=== PATIENT | female | born 1990 | race African-American/Black ===

== ENCOUNTER 2017-10-02 00:23 | Emergency (ER) | payer OTHER ==
[2017-10-02 00:40] LABS: Glucose,Whole Blood 185 mg/dL (75-99)
[2017-10-02 00:50] VITALS: TEMP 96.7
[2017-10-02] MEDS ORDERED: ONDANSETRON 4 MG/2 ML VIAL IVP STA ×2 (00:51→02:05)
--- NOTE | 2017-10-02 02:03 | ED ---
General Adult HPI - General Chief complaint: Overdose Stated complaint: overdose Time Seen by Provider: 10/02/17 00:27 Source: patient, EMS, RN notes reviewed Mode of arrival: EMS Limitations: no limitations - History of Present Illness Initial comments: 27-year-old female presenting with suspected heroin overdose. Patient was found by EMS in a bathtub, she was cyanotic Neck covered in cold water. Her friends had been dousing her with ice cold water. Patient states she remembers drinking alcohol and smoking marijuana. At the time my initial evaluation she is not admitting to using heroin. She denies any previous heroin use. Although she is uncertain of what drug she took. No suicidal ideation. Patient complains of some nausea. No other complaints. Patient was given 2 mg of IV Narcan with resolution in her apnea and cyanosis. Patient is awake and alert at the time my evaluation. - Related Data Allergies Allergy/AdvReac Type Severity Reaction Status Date / Time vancomycin Allergy Rash/Hives Verified 10/02/17 00:35 Penicillins AdvReac Rash/Hives Verified 10/02/17 00:35 Review of Systems ROS Statement: Those systems with pertinent positive or pertinent negative responses have been documented in the HPI. ROS Other: All systems not noted in ROS Statement are negative. Past Medical History Past Medical History: Asthma History of Any Multi-Drug Resistant Organisms: None Reported Past Surgical History: Orthopedic Surgery Additional Past Surgical History / Comment(s): bilateral knee surgery Past Psychological History: No Psychological Hx Reported Smoking Status: Current every day smoker Past Alcohol Use History: None Reported Past Drug Use History: Heroin General Exam Limitations: no limitations General appearance: alert, in no apparent distress Head exam: Present: atraumatic, normocephalic Eye exam: Present: normal appearance, PERRL ENT exam: Present: normal exam Neck exam: Present: normal inspection. Absent: tenderness, meningismus Respiratory exam: Present: normal lung sounds bilaterally. Absent: respiratory distress, wheezes Cardiovascular Exam: Present: regular rate, normal rhythm GI/Abdominal exam: Present: soft. Absent: distended, tenderness, guarding Extremities exam: Present: normal inspection. Absent: normal capillary refill, pedal edema Neurological exam: Present: alert, oriented X3, CN II-XII intact. Absent: motor sensory deficit Psychiatric exam: Present: normal affect, normal mood Skin exam: Present: warm, dry, intact. Absent: cyanosis, diaphoretic Course Vital Signs 10/02/17 10/02/17 00:23 00:42 Temperature 96.7 F L Respiratory 16 Rate Blood Pressure 156/77 O2 Sat by Pulse 99 Oximetry Medical Decision Making - Medical Decision Making 27-year-old female presenting with suspected heroin overdose. According to EMS patient was cyanotic and apneic, this improved with 2 mg of Narcan. History consistent with opiate overdose. Patient is observed in the emergency department for 3 hours, no deterioration in respiratory status. Patient remains stable. Urine drug screen positive for cocaine and marijuana. No opiates found in the urine although this is likely delayed. Diagnosis: Suspect opiate overdose, cocaine and marijuana use. - Lab Data Lab Results 10/02/17 10/02/17 Range/Units 00:32 02:25 POC Glucose (mg/dL) 185 H (75-99) mg/dL POC Glu Boot Turner ID Kelly Gonzalez Urine Opiates Screen Not Detected (NotDetected) Ur Oxycodone Screen Not Detected (NotDetected) Urine Methadone Screen Not Detected (NotDetected) Ur Propoxyphene Screen Not Detected (NotDetected) Ur Barbiturates Screen Not Detected (NotDetected) U Tricyclic Antidepress Not Detected (NotDetected) Ur Phencyclidine Scrn Not Detected (NotDetected) Ur Amphetamines Screen Not Detected (NotDetected) U Methamphetamines Scrn Not Detected (NotDetected) U Benzodiazepines Scrn Not Detected (NotDetected) Urine Cocaine Screen Detected H (NotDetected) U Marijuana (THC) Screen Detected H (NotDetected) Disposition Clinical Impression: Poisoning by opiate or related narcotic, Drug overdose Disposition: HOME SELF-CARE Condition: Good Instructions: Cocaine Abuse (ED), Narcotic Abuse (ED) Referrals: None,Stated [Primary Care Provider] - 1-2 days Tiara Hwang MD [REFERRING] - 1-2 days Time of Disposition: 03:28
[2017-10-02 03:14] LABS: Amphetamine Screen,Urine Not Detected (NotDetected); Barbiturate Screen,Urine Not Detected (NotDetected); Benzodiazepines Screen,Urine Not Detected (NotDetected); Cocaine Screen,Urine Detected (NotDetected); Methadone Screen, Urine Not Detected (NotDetected); Opiate Screen,Urine Not Detected (NotDetected); Oxycodone Screen, Urine Not Detected (NotDetected); Phencyclidine Screen,Urine Not Detected (NotDetected); Tricyclic Antidepressant,Urine Not Detected (NotDetected); Urn Cannabinoid Scrn Detected (NotDetected)
[2017-10-02 03:26] VITALS: PULSE 74; RESP 18
[2017-10-02 03:50] VITALS: BP 105/63
== END 2017-10-02 03:51 | disposition home or self-care (01) ==
LOC: EC 00:23
DX: T40.1X1A Poisoning by heroin, accidental (unintentional), initial encounter (principal); F17.200 Nicotine dependence, unspecified, uncomplicated; Z88.1 Allergy status to other antibiotic agents; Z88.0 Allergy status to penicillin; Y92.002 Bathroom of unspecified non-institutional (private) residence as the place of occurrence of the external cause
CPT/HCPCS: 36415; 80306; 99284; 96374; 96376; J2405

== ENCOUNTER 2017-11-20 08:36 | Emergency (ER) | payer OTHER ==
[2017-11-20 08:41] VITALS: BP 137/73; PULSE 87; RESP 18; TEMP 98.2
[2017-11-20 09:05] LABS: Glucose,Whole Blood 99 mg/dL (75-99)
--- NOTE | 2017-11-20 09:07 | ED ---
General Adult HPI - General Chief complaint: Upper Respiratory Infection Stated complaint: POSS STREP Time Seen by Provider: 11/20/17 08:47 Source: patient, RN notes reviewed Mode of arrival: ambulatory Limitations: no limitations - History of Present Illness Initial comments: Patient went 27-year-old female presenting today to the emergency room with a chief complaint of body aches, chills, fever, nausea vomiting and cough congestion. Patient states all the symptoms started yesterday. States she's had body aches. States had a low-grade fever yesterday. Doesn't nausea vomiting no signs of any blood in the emesis. Admits increased cough congestion. States she is out of her albuterol inhaler. Denies any other complaints. Patient denies any recent shortness of breath, chest pain, back pain , numbness or tingling, dysuria or hematuria, constipation or diarrhea, headaches or visual changes, or any other complaints. - Related Data Previous Rx's Medication Instructions Recorded Albuterol Inhaler [Ventolin Hfa 1 - 2 puff INHALATION Q4-6H PRN #1 11/20/17 Inhaler] inhaler Ondansetron Odt [Zofran ODT] 4 mg PO Q8HR PRN #20 tab 11/20/17 Oseltamivir [Tamiflu] 75 mg PO Q12HR 5 Days cap 11/20/17 Allergies Allergy/AdvReac Type Severity Reaction Status Date / Time vancomycin Allergy Rash/Hives Verified 11/20/17 08:41 Penicillins AdvReac Rash/Hives Verified 11/20/17 08:41 Review of Systems ROS Statement: Those systems with pertinent positive or pertinent negative responses have been documented in the HPI. ROS Other: All systems not noted in ROS Statement are negative. Past Medical History Past Medical History: Asthma Additional Past Medical History / Comment(s): previous heroin History of Any Multi-Drug Resistant Organisms: None Reported Past Surgical History: Orthopedic Surgery Additional Past Surgical History / Comment(s): bilateral knee surgery Past Psychological History: No Psychological Hx Reported Smoking Status: Current every day smoker Past Alcohol Use History: None Reported Past Drug Use History: Marijuana General Exam - General Exam Comments Initial Comments: General: The patient is awake and alert, in no distress, and does not appear acutely ill. Eye: Pupils are equal, round and reactive to light, extra-ocular movements are intact. No nystagmus. There is normal conjunctiva bilaterally. No signs of icterus. Ears, nose, mouth and throat: There are moist mucous membranes and no oral lesions. No exudate. Uvula midline. Mild redness to the posterior pharynx. Neck: The neck is supple, there is no tenderness or JVD. Cardiovascular: There is a regular rate and rhythm. No murmur, rub or gallop is appreciated. Respiratory: Lungs are clear to auscultation, respirations are non-labored, breath sounds are equal. No wheezes, stridor, rales, or rhonchi. Musculoskeletal: Normal ROM, no tenderness. Strength 5/5. Sensation intact. Pulses equal bilaterally 2+. Neurological: A&O x 3. CN II-XII intact, There are no obvious motor or sensory deficits. Coordination appears grossly intact. Speech is normal. Skin: Skin is warm and dry and no rashes or lesions are noted. Psychiatric: Cooperative, appropriate mood & affect, normal judgment. Limitations: no limitations Course Vital Signs 11/20/17 08:38 Temperature 98.2 F Pulse Rate 87 Respiratory 18 Rate Blood Pressure 137/73 O2 Sat by Pulse 100 Oximetry Medical Decision Making - Medical Decision Making Patient's symptoms are consistent with influenza. Symptoms started yesterday will be started on Tamiflu. Patient also given nausea medication go home with and a refill for her albuterol. Disposition Clinical Impression: Influenza Disposition: HOME SELF-CARE Condition: Good Instructions: Influenza (ED) Additional Instructions: Please use medication as discussed. Please follow-up with family doctor in the next 2 days of symptoms have not improved. Please return to emergency room if the symptoms increase or worsen or for any other concerns. Prescriptions: Albuterol Inhaler [Ventolin Hfa Inhaler] 1 - 2 puff INHALATION Q4-6H PRN #1 inhaler PRN Reason: Cough Ondansetron Odt [Zofran ODT] 4 mg PO Q8HR PRN #20 tab PRN Reason: Nausea Oseltamivir [Tamiflu] 75 mg PO Q12HR 5 Days cap Referrals: None,Stated [Primary Care Provider] - 1-2 days Morteza Sepulveda MD [STAFF PHYSICIAN] - 1-2 days Time of Disposition: 09:06
== END 2017-11-20 09:15 | disposition home or self-care (01) ==
LOC: EC 08:36
DX: J11.1 Influenza due to unidentified influenza virus with other respiratory manifestations (principal); F17.200 Nicotine dependence, unspecified, uncomplicated; Z88.0 Allergy status to penicillin; Z88.1 Allergy status to other antibiotic agents
CPT/HCPCS: 36415; 99283

== ENCOUNTER 2017-11-20 21:53 | Emergency (ER) | payer OTHER ==
[2017-11-20] MEDS ORDERED: ACETAMINOPHEN TAB 500 MG TAB PO STA (23:42)
[2017-11-20] MEDS ORDERED: SODIUM CHLORIDE 0.9% 1,000 ML IV STA (23:42)
[2017-11-20] MEDS ORDERED: KETOROLAC 30 MG/ML 1 ML VIAL IVP STA (23:43)
--- NOTE | 2017-11-21 00:35 | ED ---
Fever HPI - General Chief Complaint: Fever Stated Complaint: FLU Time Seen by Provider: 11/20/17 23:16 Source: patient Mode of arrival: ambulatory Limitations: no limitations - History of Present Illness Initial Comments: Patient is a 27-year-old female presenting for flulike illness. Patient states that this morning, she started having myalgias, headache, fever, cough. She also admits to mildly diffuse abdominal pain as well as nausea and vomiting. She states that she was seen her earlier today and no testing was done and told that she likely had the flu. She is unsure whether or not she was given prescription for Tamiflu. - Related Data Previous Rx's Medication Instructions Recorded Albuterol Inhaler [Ventolin Hfa 1 - 2 puff INHALATION Q4-6H PRN #1 11/20/17 Inhaler] inhaler Ondansetron Odt [Zofran ODT] 4 mg PO Q8HR PRN #20 tab 11/20/17 Oseltamivir [Tamiflu] 75 mg PO Q12HR 5 Days cap 11/20/17 Allergies Allergy/AdvReac Type Severity Reaction Status Date / Time vancomycin Allergy Rash/Hives Verified 11/20/17 22:04 Penicillins AdvReac Rash/Hives Verified 11/20/17 22:04 Review of Systems ROS Statement: Those systems with pertinent positive or pertinent negative responses have been documented in the HPI. Constitutional: Positive for chills, fatigue and fever. HENT: Negative for congestion. Respiratory: Negative for chest tightness, shortness of breath and wheezing. Cardiovascular: Negative for chest pain and palpitations. Gastrointestinal: Positive for abdominal pain. Negative for abdominal distention , diarrhea, positive for nausea and vomiting. Genitourinary: Negative for dysuria. Musculoskeletal: Negative for back pain, neck pain and neck stiffness. Skin: Negative for color change. Neurological: Negative for dizziness, speech difficulty, weakness and light- headedness. Positive for headache Psychiatric/Behavioral: Negative for agitation and confusion. The patient is not nervous/anxious. ROS Other: All systems not noted in ROS Statement are negative. Past Medical History Past Medical History: Asthma Additional Past Medical History / Comment(s): previous heroin History of Any Multi-Drug Resistant Organisms: None Reported Past Surgical History: Orthopedic Surgery Additional Past Surgical History / Comment(s): bilateral knee surgery Past Psychological History: No Psychological Hx Reported Smoking Status: Current every day smoker Past Alcohol Use History: None Reported Past Drug Use History: Marijuana General Exam - General Exam Comments Initial Comments: Physical Exam Constitutional: Pt is oriented to person, place, and time. Pt appears well- developed and well-nourished. No distress. HENT: Head: Normocephalic and atraumatic. Eyes: EOM are normal. Neck: Normal range of motion. Neck supple. Cardiovascular: Tachycardia, regular rhythm, S1 normal, S2 normal and normal heart sounds. Exam reveals no gallop and no friction rub. No murmur heard. Pulmonary/Chest: Effort normal and breath sounds normal. No tachypnea and no bradypnea. No respiratory distress. No wheezes or rales noted. Abdominal: Soft. Bowel sounds are normal. Pt exhibits no shifting dullness, no distension, no pulsatile liver, no fluid wave, no abdominal bruit and no ascites. There is no tenderness. There is no rigidity, no rebound, no guarding, no tenderness at McBurney's point and negative Gilmore's sign. Musculoskeletal: Normal range of motion. Neurological: Pt is alert and oriented to person, place, and time. No cranial nerve deficit. Skin: Skin is warm and dry. No rash noted. Pt is not diaphoretic. No erythema. No pallor. Psychiatric: Pt has a normal mood and affect. Pt behavior is normal. Thought content normal. Limitations: no limitations Course Vital Signs 11/20/17 22:02 Temperature 101.1 F H Pulse Rate 101 H Respiratory 18 Rate Blood Pressure 140/87 O2 Sat by Pulse 100 Oximetry Medical Decision Making - Medical Decision Making Laboratory studies revealed that there is no significant leukocytosis and urinalysis was negative for both and infection. The patient was given 2 L of fluids as well as antiemetics and Toradol. Patient stated that the symptoms were improved. Prescriptions were not given as the patient stated that she did already have prescriptions for Zofran and that she had taken her first dose of Tamiflu earlier. Patient was reexamined prior to d/c and found to be resting comfortably in bed in no acute distress.. Explained all labs and diagnostic test results and that we will discharge the patient home and patient is to follow up with PCP in 1-2 days and return to the ED if symptoms worsen. Pt is agreeable to plan. - Lab Data Result diagrams: 11/21/17 00:51 11/21/17 00:51 Lab Results 11/21/17 11/21/17 11/21/17 Range/Units 00:51 00:51 00:51 WBC 8.1 (3.8-10.6) k/uL RBC 4.03 (3.80-5.40) m/uL Hgb 10.2 L (11.4-16.0) gm/dL Hct 33.6 L (34.0-46.0) % MCV 83.2 (80.0-100.0) fL MCH 25.4 (25.0-35.0) pg MCHC 30.5 L (31.0-37.0) g/dL RDW 15.7 H (11.5-15.5) % Plt Count 329 (150-450) k/uL Neutrophils % 74 % Lymphocytes % 13 % Monocytes % 7 % Eosinophils % 3 % Basophils % 1 % Neutrophils # 6.0 (1.3-7.7) k/uL Lymphocytes # 1.1 (1.0-4.8) k/uL Monocytes # 0.6 (0-1.0) k/uL Eosinophils # 0.3 (0-0.7) k/uL Basophils # 0.0 (0-0.2) k/uL Hypochromasia Slight Sodium 138 (137-145) mmol/L Potassium 4.1 (3.5-5.1) mmol/L Chloride 103 (98-107) mmol/L Carbon Dioxide 24 (22-30) mmol/L Anion Gap 11 mmol/L BUN 11 (7-17) mg/dL Creatinine 0.80 (0.52-1.04) mg/dL Est GFR (MDRD) Af Amer >60 (>60 ml/min/1.73 sqM) Est GFR (MDRD) Non-Af >60 (>60 ml/min/1.73 sqM) Glucose 100 H (74-99) mg/dL Calcium 9.0 (8.4-10.2) mg/dL Magnesium 1.8 (1.6-2.3) mg/dL Total Bilirubin 0.2 (0.2-1.3) mg/dL AST 14 (14-36) U/L ALT 22 (9-52) U/L Alkaline Phosphatase 83 (38-126) U/L Total Protein 7.3 (6.3-8.2) g/dL Albumin 4.0 (3.5-5.0) g/dL Urine Color Urine Appearance (Clear) Urine pH (5.0-8.0) Ur Specific [place] (1.001-1.035) Urine Protein (Negative) Urine Glucose (UA) (Negative) Urine Ketones (Negative) Urine Blood (Negative) Urine Nitrite (Negative) Urine Bilirubin (Negative) Urine Urobilinogen (<2.0) mg/dL Ur Leukocyte Esterase (Negative) Urine RBC (0-5) /hpf Urine WBC (0-5) /hpf Ur Squamous Epith Cells (0-4) /hpf Urine Mucus (None) /hpf Urine HCG, Qual (Not Detectd) Influenza Type A RNA Detected H (Not Detectd) Influenza Type B (PCR) Not Detected (Not Detectd) 11/21/17 11/21/17 Range/Units 00:51 00:51 WBC (3.8-10.6) k/uL RBC (3.80-5.40) m/uL Hgb (11.4-16.0) gm/dL Hct (34.0-46.0) % MCV (80.0-100.0) fL MCH (25.0-35.0) pg MCHC (31.0-37.0) g/dL RDW (11.5-15.5) % Plt Count (150-450) k/uL Neutrophils % % Lymphocytes % % Monocytes % % Eosinophils % % Basophils % % Neutrophils # (1.3-7.7) k/uL Lymphocytes # (1.0-4.8) k/uL Monocytes # (0-1.0) k/uL Eosinophils # (0-0.7) k/uL Basophils # (0-0.2) k/uL Hypochromasia Sodium (137-145) mmol/L Potassium (3.5-5.1) mmol/L Chloride (98-107) mmol/L Carbon Dioxide (22-30) mmol/L Anion Gap mmol/L BUN (7-17) mg/dL Creatinine (0.52-1.04) mg/dL Est GFR (MDRD) Af Amer (>60 ml/min/1.73 sqM) Est GFR (MDRD) Non-Af (>60 ml/min/1.73 sqM) Glucose (74-99) mg/dL Calcium (8.4-10.2) mg/dL Magnesium (1.6-2.3) mg/dL Total Bilirubin (0.2-1.3) mg/dL AST (14-36) U/L ALT (9-52) U/L Alkaline Phosphatase (38-126) U/L Total Protein (6.3-8.2) g/dL Albumin (3.5-5.0) g/dL Urine Color Yellow Urine Appearance Clear (Clear) Urine pH 6.5 (5.0-8.0) Ur Specific [place] 1.017 (1.001-1.035) Urine Protein Negative (Negative) Urine Glucose (UA) Negative (Negative) Urine Ketones Negative (Negative) Urine Blood Negative (Negative) Urine Nitrite Negative (Negative) Urine Bilirubin Negative (Negative) Urine Urobilinogen <2.0 (<2.0) mg/dL Ur Leukocyte Esterase Negative (Negative) Urine RBC 1 (0-5) /hpf Urine WBC <1 (0-5) /hpf Ur Squamous Epith Cells 2 (0-4) /hpf Urine Mucus Rare H (None) /hpf Urine HCG, Qual Not Detected (Not Detectd) Influenza Type A RNA (Not Detectd) Influenza Type B (PCR) (Not Detectd) Disposition Clinical Impression: Influenza A Disposition: HOME SELF-CARE Condition: Good Instructions: Influenza (ED) Referrals: None,Stated [Primary Care Provider] - 1-2 days Time of Disposition: 01:32
[2017-11-21 01:08] LABS: Appearance,Urine Clear (Clear); Bilirubin,Urine Negative (Negative); Blood,Urine Negative (Negative); Color,Urine Yellow; Glucose,Urine (UA) Negative (Negative); Ketones,Urine Negative (Negative); Leukocyte Esterase,Urine Negative (Negative); Mucus,Urine Rare /hpf; Nitrite,Urine Negative (Negative); PH, Urine 6.5 (5.0-8.0); Protein,Urine Negative (Negative); RBC,Urine 1 /hpf (0-5); Specific Gravity,Urine 1.017 (1.001-1.035); Squamous Epithelial Cell,Urine 2 /hpf (0-4); Urobilinogen,Urine <2.0 mg/dL (<2.0); WBC,Urine <1 /hpf (0-5)
[2017-11-21 01:14] LABS: ALT 22 U/L (9-52); AST 14 U/L (14-36); Alkaline Phosphatase 83 U/L (38-126); Anion Gap 11 mmol/L; Blood Urea Nitrogen 11 mg/dL (7-17); Carbon Dioxide 24 mmol/L (22-30); Chloride 103 mmol/L (98-107); Glucose 100 mg/dL (74-99); Magnesium 1.8 mg/dL (1.6-2.3); Potassium 4.1 mmol/L (3.5-5.1); Sodium 138 mmol/L (137-145); Total Bilirubin 0.2 mg/dL (0.2-1.3); Total Protein 7.3 g/dL (6.3-8.2)
[2017-11-21 01:15] LABS: Basophils % (A) 1 %; Eosinophils # (A) 0.3 k/uL (0-0.7); Eosinophils % (A) 3 %; HCT 33.6 % (34.0-46.0); HGB 10.2 gm/dL (11.4-16.0); Hypochromasia Slight; Lymphocytes # (A) 1.1 k/uL (1.0-4.8); Lymphocytes % (A) 13 %; MCH 25.4 pg (25.0-35.0); MCHC 30.5 g/dL (31.0-37.0); MCV 83.2 fL (80.0-100.0); Mean Platelet Volume 6.8; Monocytes # (A) 0.6 k/uL (0-1.0); Monocytes % (A) 7 %; Neutrophils % (A) 74 %; Platelet Count 329 k/uL (150-450); RBC 4.03 m/uL (3.80-5.40); RDW 15.7 % (11.5-15.5); WBC 8.1 k/uL (3.8-10.6)
[2017-11-21 01:40] VITALS: BP 117/53; PULSE 92; RESP 20; TEMP 101.4
== END 2017-11-21 01:40 | disposition home or self-care (01) ==
LOC: EC 21:53
DX: J10.1 Influenza due to other identified influenza virus with other respiratory manifestations (principal); F17.200 Nicotine dependence, unspecified, uncomplicated; Z88.0 Allergy status to penicillin; Z88.1 Allergy status to other antibiotic agents
CPT/HCPCS: 36415; 80053; 83735; 85025; 81003; 81025; 87502; 99283; 96374; 96361; J1885

== ENCOUNTER 2018-01-02 19:32 | Emergency (ER) | payer OTHER ==
[2018-01-02 19:40] VITALS: RESP 18
[2018-01-02] MEDS ORDERED: SODIUM CHLORIDE 0.9% 1,000 ML IV STA (19:59)
[2018-01-02] MEDS ORDERED: ACETAMINOPHEN TAB 500 MG TAB PO STA (19:59)
[2018-01-02] MEDS ORDERED: IBUPROFEN 600 MG TAB PO STA (19:59)
[2018-01-02] MEDS ORDERED: ONDANSETRON 4 MG/2 ML VIAL IVP STA (20:00)
[2018-01-02] MEDS ORDERED: IPRATROPIUM-ALBUTEROL 3 ML NEB INHALATION STA (20:00)
--- NOTE | 2018-01-02 20:04 | ED ---
Fever HPI - General Chief Complaint: Fever Stated Complaint: VOMITING,BODY ACHES Time Seen by Provider: 01/02/18 19:48 Source: patient, RN notes reviewed Mode of arrival: ambulatory Limitations: no limitations - History of Present Illness Initial Comments: This is a 27-year-old female presents to the emergency department with chief complaint of fever, cough and vomiting. Patient states that she has been sick for the past 3 days. She reports a headache, body aches, productive cough of yellow phlegm, sore throat and congestion. She states that yesterday she developed nausea, vomiting and diarrhea. She states she has vomited 4 times today and has been unable to keep down any food or water. Patient states that she is a current, every day smoker and does have a history of asthma. She states that she lost her albuterol inhaler. Denies chest pain or shortness of breath, numbness or tingling, dysuria or hematuria. Patient does report some generalized abdominal discomfort. - Related Data Home Medications Medication Instructions Recorded Confirmed Albuterol Inhaler [Ventolin Hfa 1 - 2 puff INHALATION RT-Q4H PRN 01/02/18 Inhaler] Ibuprofen [Motrin Ib] 200 - 400 mg PO Q6H PRN 01/02/18 01/02/18 [facility] Allergy Relief 1 tab PO ONCE PRN 01/02/18 01/02/18 Previous Rx's Medication Instructions Recorded Albuterol Inhaler [Ventolin Hfa 1 - 2 puff INHALATION Q6HR PRN #1 01/02/18 Inhaler] inhaler Oseltamivir [Tamiflu] 75 mg PO Q12HR #10 cap 01/02/18 Allergies Allergy/AdvReac Type Severity Reaction Status Date / Time vancomycin Allergy Rash/Hives Verified 01/02/18 19:50 Penicillins AdvReac Rash/Hives Verified 01/02/18 19:50 Review of Systems ROS Statement: Those systems with pertinent positive or pertinent negative responses have been documented in the HPI. ROS Other: All systems not noted in ROS Statement are negative. Past Medical History Past Medical History: Asthma Additional Past Medical History / Comment(s): previous heroin History of Any Multi-Drug Resistant Organisms: None Reported Past Surgical History: Orthopedic Surgery Additional Past Surgical History / Comment(s): bilateral knee surgery Past Psychological History: No Psychological Hx Reported Smoking Status: Current every day smoker Past Alcohol Use History: None Reported Past Drug Use History: Marijuana General Exam - General Exam Comments Initial Comments: General: Awake and alert, well-developed; in no apparent distress. HEENT: Head atraumatic, normocephalic. Pupils are equal, round and reactive to light. Extraocular movements intact. Oropharynx moist without erythema or exudate. Neck: Supple. Normal ROM. Cardiovascular: Regular rate and rhythm. No murmurs, rubs or gallops. Chest symmetrical. Respiratory: Lungs clear to auscultation bilaterally. No wheezes, rales or rhonchi. Normal respiratory effort with no use of accessory muscles. Abdomen: Soft, non-distended. Generalized mild tenderness on palpation. No rigidity, rebound or guarding. Normal bowel sounds in all 4 quadrants. Musculoskeletal: Normal ROM, no tenderness bilateral upper and lower extremities. Ambulating normally. Skin: [place], warm and dry without rashes or lesions. Neurological: Alert and oriented x3. CN II-XII grossly intact. Speech is fluent and answers are appropriate. No focal neuro deficits. Psychiatric: Normal mood and affect. No overt signs of depression or anxiety noted. Limitations: no limitations Course Vital Signs 01/02/18 01/02/18 01/02/18 19:38 20:00 20:23 Temperature 101.4 F H Pulse Rate 106 H Respiratory 18 20 18 Rate Blood Pressure 135/82 O2 Sat by Pulse 100 Oximetry 01/02/18 01/02/18 20:25 20:45 Temperature Pulse Rate 102 H 100 Respiratory Rate Blood Pressure O2 Sat by Pulse Oximetry Medical Decision Making - Medical Decision Making This is a 27-year-old female who presents to the emergency department with chief complaint of fever and vomiting. Patient states that she has been unable for the past 3 days. She complains of headache, body aches, congestion, cough, sore throat, nausea and vomiting. CBC and CMP are unremarkable. Chest x-ray reveals evidence for no acute cardiopulmonary processes. Patient did test positive for influenza B. Vital signs are stable and patient is in no acute distress. She will be discharged home with a prescription for Tamiflu as well as an albuterol inhaler. Patient is in agreement with plan and voices understanding. All questions were answered. - Lab Data Result diagrams: 01/02/18 20:15 01/02/18 20:15 Lab Results 01/02/18 01/02/18 01/02/18 Range/Units 20:15 20:15 20:15 WBC 7.2 (3.8-10.6) k/uL RBC 4.41 (3.80-5.40) m/uL Hgb 11.7 (11.4-16.0) gm/dL Hct 35.7 (34.0-46.0) % MCV 80.8 (80.0-100.0) fL MCH 26.6 (25.0-35.0) pg MCHC 32.9 (31.0-37.0) g/dL RDW 16.1 H (11.5-15.5) % Plt Count 286 (150-450) k/uL Neutrophils % 79 % Lymphocytes % 12 % Monocytes % 5 % Eosinophils % 2 % Basophils % 0 % Neutrophils # 5.7 (1.3-7.7) k/uL Lymphocytes # 0.8 L (1.0-4.8) k/uL Monocytes # 0.4 (0-1.0) k/uL Eosinophils # 0.2 (0-0.7) k/uL Basophils # 0.0 (0-0.2) k/uL Anisocytosis Slight Sodium 138 (137-145) mmol/L Potassium 3.6 (3.5-5.1) mmol/L Chloride 104 (98-107) mmol/L Carbon Dioxide 21 L (22-30) mmol/L Anion Gap 13 mmol/L BUN 14 (7-17) mg/dL Creatinine 0.80 (0.52-1.04) mg/dL Est GFR (CKD-EPI)AfAm >90 (>60 ml/min/1.73 sqM) Est GFR (CKD-EPI)NonAf >90 (>60 ml/min/1.73 sqM) Glucose 94 (74-99) mg/dL Calcium 9.4 (8.4-10.2) mg/dL Total Bilirubin 0.2 (0.2-1.3) mg/dL AST 15 (14-36) U/L ALT 21 (9-52) U/L Alkaline Phosphatase 81 (38-126) U/L Total Protein 7.4 (6.3-8.2) g/dL Albumin 4.1 (3.5-5.0) g/dL Influenza Type A RNA Not Detected (Not Detectd) Influenza Type B (PCR) Detected H (Not Detectd) - Radiology Data Radiology results: report reviewed Chest x-ray impression: No acute cardiopulmonary process. Disposition Clinical Impression: Influenza Disposition: HOME SELF-CARE Condition: Good Instructions: Influenza (ED) Additional Instructions: Please take medications as prescribed. Please follow up with primary care provider within 1-2 days. Return to emergency department if symptoms should worsen or any concerns arise. Prescriptions: Albuterol Inhaler [Ventolin Hfa Inhaler] 1 - 2 puff INHALATION Q6HR PRN #1 inhaler PRN Reason: Shortness Of Breath Oseltamivir [Tamiflu] 75 mg PO Q12HR #10 cap Referrals: None,Stated [Primary Care Provider] - 1-2 days Time of Disposition: 21:16
[2018-01-02 20:31] LABS: Anisocytosis Slight; Basophils % (A) 0 %; Eosinophils # (A) 0.2 k/uL (0-0.7); Eosinophils % (A) 2 %; HCT 35.7 % (34.0-46.0); HGB 11.7 gm/dL (11.4-16.0); Lymphocytes # (A) 0.8 k/uL (1.0-4.8); Lymphocytes % (A) 12 %; MCH 26.6 pg (25.0-35.0); MCHC 32.9 g/dL (31.0-37.0); MCV 80.8 fL (80.0-100.0); Mean Platelet Volume 7.1; Monocytes # (A) 0.4 k/uL (0-1.0); Monocytes % (A) 5 %; Neutrophils # (A) 5.7 k/uL (1.3-7.7); Neutrophils % (A) 79 %; Platelet Count 286 k/uL (150-450); RBC 4.41 m/uL (3.80-5.40); RDW 16.1 % (11.5-15.5); WBC 7.2 k/uL (3.8-10.6)
[2018-01-02 20:44] LABS: ALT 21 U/L (9-52); AST 15 U/L (14-36); Albumin 4.1 g/dL (3.5-5.0); Alkaline Phosphatase 81 U/L (38-126); Anion Gap 13 mmol/L; Blood Urea Nitrogen 14 mg/dL (7-17); Calcium 9.4 mg/dL (8.4-10.2); Carbon Dioxide 21 mmol/L (22-30); Chloride 104 mmol/L (98-107); Glucose 94 mg/dL (74-99); Potassium 3.6 mmol/L (3.5-5.1); Sodium 138 mmol/L (137-145); Total Bilirubin 0.2 mg/dL (0.2-1.3); Total Protein 7.4 g/dL (6.3-8.2)
--- NOTE | 2018-01-02 21:00 | XR ---
EXAMINATION TYPE: XR chest 2V DATE OF EXAM: 01/02/2018 COMPARISON: None HISTORY: 27-year-old female cough and fever TECHNIQUE: PA and lateral views FINDINGS: The cardiomediastinal silhouette, aorta, and pulmonary vasculature are within normal limits. Lungs an d pleural spaces are clear. IMPRESSION: No acute cardiopulmonary process.
[2018-01-02 21:26] VITALS: BP 142/75; PULSE 99; TEMP 99.3
== END 2018-01-02 21:25 | disposition home or self-care (01) ==
LOC: EC 19:32
DX: J10.1 Influenza due to other identified influenza virus with other respiratory manifestations (principal); J45.909 Unspecified asthma, uncomplicated; F17.200 Nicotine dependence, unspecified, uncomplicated; Z88.0 Allergy status to penicillin; Z88.1 Allergy status to other antibiotic agents
CPT/HCPCS: 99284; 96374; 96361; 36415; 94640; 80053; 85025; 87502; 71046; J2405

== ENCOUNTER 2018-10-11 21:40 | Emergency (ER) | payer OTHER ==
[2018-10-11 22:05] VITALS: BP 123/77; PULSE 73; TEMP 98.5
[2018-10-11] MEDS ORDERED: predniSONE 20 MG TAB PO STA (22:23)
[2018-10-11] MEDS ORDERED: KETOROLAC 60 MG/2 ML VIAL IM STA (22:23)
[2018-10-11 22:39] VITALS: RESP 20
--- NOTE | 2018-10-11 22:45 | ED ---
URI HPI - General Chief Complaint: Upper Respiratory Infection Stated Complaint: Cough, congested Time Seen by Provider: 10/11/18 22:08 Source: patient Mode of arrival: ambulatory Limitations: no limitations - History of Present Illness Initial Comments: 28 or female past medical history of asthma presenting today for chief complaint of cough 5 days. Patient states she's had a cough 5 days that has caused her to have a headache every time she coughs as well as a sore throat. Patient denies sore throat independent of coughing. Patient denies any fever, chills,hemoptysis or night sweats. Patient denies any abdominal pain or vomiting. Patient states she had a softer than normal bowel movement however denies mckenzie diarrhea. Patient denies any melena or hematochezia. Patient denies difficulty breathing, chest pain, described exertion. Patient denies noting any wheeze. She does admit to occasional bodyaches. Patient denies any visual changes, diplopia, neck stiffness or photophobia. Remainder of ROS (-). Upon arrival patient is well-appearing, vital signs within normal limits. No signs of acute distress. - Related Data Previous Rx's Medication Instructions Recorded Albuterol Inhaler [Ventolin Hfa 1 - 2 puff INHALATION RT-Q6H PRN 7 10/11/18 Inhaler] Days #1 inhaler Benzonatate [Tessalon Perles] 100 mg PO TID 7 Days #21 cap 10/11/18 Ibuprofen 800 mg PO Q8H PRN 7 Days #21 tablet 10/11/18 predniSONE 20 mg PO DAILY 4 Days #4 tab 10/11/18 Allergies Allergy/AdvReac Type Severity Reaction Status Date / Time vancomycin Allergy Rash/Hives Verified 01/02/18 19:50 Penicillins AdvReac Rash/Hives Verified 01/02/18 19:50 Review of Systems ROS Statement: Those systems with pertinent positive or pertinent negative responses have been documented in the HPI. ROS Other: All systems not noted in ROS Statement are negative. 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 Eye: +3 mm pupils are equal, round and reactive to light, extra-ocular movements are intact. No nystagmus. There is normal conjunctiva bilaterally. No signs of icterus. Ears, nose, mouth and throat: There are moist mucous membranes and no oral lesions. Oropharynx is mildly erythematous, there is no tonsillar large exudates lesions or crypts. Uvula is midline. No anterior cervical adenopathy. Noted postnasal drip. Tympanic membranes are within normal limits bilaterally there is no erythema, effusions, retractions or bulging. There is no pain to palpation of the mastoid. Neck: The neck is supple, there is no tenderness or JVD. Cardiovascular: There is a regular rate and rhythm. No murmur, rub or gallop is appreciated. Respiratory: Lungs are clear to auscultation, respirations are non-labored, breath sounds are equal. No wheezes, stridor, rales, or rhonchi. Dry cough audible on exam-with no distinct characteristic Gastrointestinal: Soft, non-distended, non-tender abdomen without masses or organomegaly noted. There is no rebound or guarding present. No CVA tenderness. Bowel sounds are unremarkable. Musculoskeletal: Normal ROM, no tenderness. Strength 5/5. Sensation intact. Pulses equal bilaterally 2+. Neurological: A&O x 3. CN II-XII intact, There are no obvious motor or sensory deficits. Coordination appears grossly intact. Speech is normal. Skin: Skin is warm and dry and no rashes or lesions are noted. Psychiatric: Cooperative, appropriate mood & affect, normal judgment. Limitations: no limitations Course Vital Signs 10/11/18 10/11/18 22:02 22:27 Temperature 98.5 F Pulse Rate 73 Respiratory 22 20 Rate Blood Pressure 123/77 O2 Sat by Pulse 100 Oximetry Medical Decision Making - Medical Decision Making Well-appearing 28 or female with past medical history of asthma and chief complaint of cough 5 days. Vital signs within normal limits. Patient appears well, there is audible dry cough on examination. No wheeze noted on examination. The areas concerning for consolidation. Influenza testing (-). CXR revealed (-). Patient was given 40 mg prednisone and IM toradol for BLEDSOE. No signs of meningeal irritation. No signs of toxicity. At this time the patient has bronchitis most likely viral nature. Patient be given Tessalon Perles for cough suppression as well as instruction to use honey and night. In addition patient be continued on steroids given smoking history, and an albuterol inhaler-patient has history of asthma and states she no longer has a rescue inhaler. At this time the patient is stable for discharge with symptomatic treatment as described above. Patient is agreeable plan at discharge, denies questions at this time. Return parameters were discussed at length the patient verbalizes understanding. Patient discharged in stable condition appearing well. Case discussed with Dr. Mast prior to discharge of patient. Disposition Clinical Impression: Bronchitis Disposition: HOME SELF-CARE Condition: Good Instructions: Acute Bronchitis (ED) Additional Instructions: Please use medication as discussed. Please follow-up with family doctor in the next 2 days. Please return to emergency room if the symptoms increase or worsen or for any other concerns. Prescriptions: Albuterol Inhaler [Ventolin Hfa Inhaler] 1 - 2 puff INHALATION RT-Q6H PRN 7 Days #1 inhaler PRN Reason: Wheezing Benzonatate [Tessalon Perles] 100 mg PO TID 7 Days #21 cap Ibuprofen 800 mg PO Q8H PRN 7 Days #21 tablet PRN Reason: Pain predniSONE 20 mg PO DAILY 4 Days #4 tab Is patient prescribed a controlled substance at d/c from ED?: No Referrals: None,Stated [Primary Care Provider] - 1-2 days [facility] [NON-STAFF] - 1-2 days Time of Disposition: 22:56
--- NOTE | 2018-10-12 03:12 | XR ---
EXAMINATION TYPE: XR chest 2V DATE OF EXAM: 10/11/2018 COMPARISON: 01/02/2018 HISTORY: Cough TECHNIQUE: Frontal and lateral views of the chest are obtained. FINDINGS: Heart and mediastinum are normal. Lungs are clear. Diaphragm is normal. Bony thorax appear s normal. IMPRESSION: Normal chest. No change.
== END 2018-10-11 23:50 | disposition home or self-care (01) ==
LOC: EC 21:40
DX: J20.9 Acute bronchitis, unspecified (principal); J45.909 Unspecified asthma, uncomplicated; F17.200 Nicotine dependence, unspecified, uncomplicated; Z79.899 Other long term (current) drug therapy; Z88.0 Allergy status to penicillin; Z88.1 Allergy status to other antibiotic agents
CPT/HCPCS: 87502; 71046; 99283; 96372; J1885; J7512

== ENCOUNTER 2018-11-13 13:53 | Emergency (ER) | payer OTHER ==
[2018-11-13 14:54] VITALS: RESP 18; TEMP 98.6
--- NOTE | 2018-11-13 15:31 | XR ---
EXAMINATION TYPE: XR chest 2V DATE OF EXAM: 11/13/2018 COMPARISON: 10/11/2018 INDICATION: Pain throat and nasal congestion TECHNIQUE: Frontal and lateral views of the chest are obtained. FINDINGS: The heart size is normal. The pulmonary vasculature is normal. The lungs are clear. IMPRESSION: 1. No acute pulmonary process.
[2018-11-13] MEDS ORDERED: ACETAMINOPHEN TAB 325 MG TAB PO STA (15:42)
[2018-11-13] MEDS ORDERED: ONDANSETRON ODT 4 MG TAB PO STA (15:44)
--- NOTE | 2018-11-13 15:46 | ED ---
General Adult HPI - General Chief complaint: ENT Stated complaint: Sore throat Time Seen by Provider: 11/13/18 14:29 Source: patient Mode of arrival: ambulatory Limitations: no limitations - History of Present Illness Initial comments: 28-year-old female patient with no pertinent past medical history presents to ED with 2 days of sinus congestion, dry cough, sore throat. Patient denies any other complaints. Patient states that she is not . Patient denies chest pain, shortness of breath, abdominal pain. Patient denies fevers or chills. Patient denies previous nausea vomiting diarrhea. Patient did experience some nausea and one episode of emesis in ED. Patient denies all other complaints. Systemic: Pt denies fatigue, myalgia, fever/chills, rash. Pt denies weakness, night sweats, weight loss. Neuro: Pt denies headache, visual disturbances, syncope or pre-syncope. HEENT: Pt denies ocular discharge or irritation, otalgia, or notable lymphadenopathy. Cardiopulmonary: Pt denies chest pain, SOB, heart palpitations, dyspnea on exertion. Abdominal/GI: Pt denies abdominal pain, n/v/d. : Pt denies dysuria, burning w/ urination, frequency/urgency. Denies new onset urinary or bowel incontinence. MSK: Pt denies myalgia, loss of strength or function in extremities. Neuro: Pt denies new onset weakness, paresthesias. - Related Data Previous Rx's Medication Instructions Recorded Albuterol Inhaler [Ventolin Hfa 1 - 2 puff INHALATION RT-Q6H PRN 7 10/11/18 Inhaler] Days #1 inhaler Benzonatate [Tessalon Perles] 100 mg PO TID 7 Days #21 cap 10/11/18 Ibuprofen 800 mg PO Q8H PRN 7 Days #21 tablet 10/11/18 predniSONE 20 mg PO DAILY 4 Days #4 tab 10/11/18 Albuterol Inhaler [Ventolin Hfa 1 - 2 puff INHALATION Q4-6H PRN #1 11/13/18 Inhaler] inhaler Doxycycline [Vibramycin] 100 mg PO BID 7 Days #14 cap 11/13/18 Fluticasone Propionate [Flonase 1 spray EA NOSTRIL Q6HR #1 bottle 11/13/18 Allergy Relief] Ibuprofen [Motrin] 600 mg PO Q6HR PRN #40 day 11/13/18 Ondansetron Odt [Zofran ODT] 4 mg PO Q8HR PRN #20 tab 11/13/18 Allergies Allergy/AdvReac Type Severity Reaction Status Date / Time vancomycin Allergy Rash/Hives Verified 11/13/18 14:37 Penicillins AdvReac Rash/Hives Verified 11/13/18 14:37 Review of Systems ROS Statement: Those systems with pertinent positive or pertinent negative responses have been documented in the HPI. ROS Other: All systems not noted in ROS Statement are negative. 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 HEENT: NC/AT, trachea midline, neck supple, no lymphadenopathy. Posterior pharynx non erythematous, without exudates. External ears appear normal, without discharge. Mucous membranes moist. Eyes PERRLA, EOM intact. There is no scleral icterus. No pallor noted. Cardiopulmonary: RRR, no murmurs, rubs or gallops, no JVD noted. Lungs CTAB in anterior and posterior samuel. No peripheral edema. Abdominal exam: Abdomen soft and non-distended. Abdomen non-tender to palpation in all 4 quadrants. Bowel sounds active in LLQ. No hepatosplenomegaly. No ecchymosis Neuro: CN II-XII grossly intact. No nuchal rigidity. MSK: No posterior calf tenderness bilaterally, homans sign negative bilaterally. Posterior tibialis and radial pulse +2 bilaterally. Sensation intact in upper and lower extremities. Full active ROM in upper and lower extremities, 5/5 stregnth. Limitations: no limitations Course Vital Signs 11/13/18 11/13/18 14:37 16:55 Temperature 98.6 F Pulse Rate 93 75 Respiratory 18 18 Rate Blood Pressure 119/58 129/59 O2 Sat by Pulse 97 97 Oximetry Medical Decision Making - Medical Decision Making 28-year-old female patient with no pertinent past medical history presents to ED with 2 days of sinus congestion, dry cough, sore throat. Patient denies any other complaints. Patient states that she is not . Patient denies chest pain, shortness of breath, abdominal pain. Patient denies fevers or chills. Patient denies previous nausea vomiting diarrhea. Patient did experience some nausea and one episode of emesis in ED. Patient denies all other complaints. Pt VSS. Physical exam did not display acute pathology. Imaging modalities CXR did not display acute process. Laboratory investigations revealed negative influenza. Patient to be treated for acute sinusitis. Patient prescribed doxycycline secondary to penicillin ALLERGY. Further history taking enhared the patient was not because, pt reports that she cannot be because she does not have sex with men - explained risks to pt if she was , she verbalized understanding. Pt additionally rx flonase for nasal congestion. At pts request pt additionally rx an albuterol inhaler, zofran, and ibuprofen to use as needed for fever. [facility]. Pt to return to ED if new s/sx develop or if condition worsens in anyway. Case discussed in depth with Dr. Joshua. - Lab Data Lab Results 11/13/18 Range/Units 15:45 Influenza Type A RNA Not Detected (Not Detectd) Influenza Type B (PCR) Not Detected (Not Detectd) Disposition Clinical Impression: Acute sinusitis Disposition: HOME SELF-CARE Condition: Stable Instructions (If sedation given, give patient instructions): Sinusitis (ED) Additional Instructions: Patient to adhere to previously discussed treatment plan and will take medication(s) as directed. Patient to follow up with PCP in 1-2 days. Patient to return to ED if symptoms do not improve. Prescriptions: Albuterol Inhaler [Ventolin Hfa Inhaler] 1 - 2 puff INHALATION Q4-6H PRN #1 inhaler PRN Reason: Cough Doxycycline [Vibramycin] 100 mg PO BID 7 Days #14 cap Fluticasone Propionate [Flonase Allergy Relief] 1 spray EA NOSTRIL Q6HR #1 bottle Ibuprofen [Motrin] 600 mg PO Q6HR PRN #40 day PRN Reason: Pain Ondansetron Odt [Zofran ODT] 4 mg PO Q8HR PRN #20 tab PRN Reason: Nausea Is patient prescribed a controlled substance at d/c from ED?: No Referrals: None,Stated [Primary Care Provider] - 1-2 days [facility] [NON-STAFF] - 1-2 days
[2018-11-13 16:59] VITALS: BP 129/59; PULSE 75
== END 2018-11-13 16:55 | disposition home or self-care (01) ==
LOC: EC 13:53
DX: J01.90 Acute sinusitis, unspecified (principal); R11.2 Nausea with vomiting, unspecified; Z88.1 Allergy status to other antibiotic agents; Z88.0 Allergy status to penicillin; Z87.09 Personal history of other diseases of the respiratory system
CPT/HCPCS: 71046; 87502; 99283

== ENCOUNTER 2019-06-01 21:19 | Emergency (ER) | payer OTHER ==
[2019-06-01 21:57] LABS: Glucose,Whole Blood 102 mg/dL (75-99)
[2019-06-01] MEDS ORDERED: diphenhydrAMINE 50 MG/ML 1 ML VIAL IVP STA (22:14)
[2019-06-01] MEDS ORDERED: METOCLOPRAMIDE 5 MG/ML 2 ML VIAL IVP STA (22:14)
[2019-06-01] MEDS ORDERED: SODIUM CHLORIDE 0.9% 1,000 ML IV ONE (22:14)
[2019-06-01 22:44] LABS: Basophils # (A) 0.1 k/uL (0-0.2); Basophils % (A) 0 %; Eosinophils # (A) 0.9 k/uL (0-0.7); Eosinophils % (A) 8 %; HCT 37.9 % (34.0-46.0); HGB 12.5 gm/dL (11.4-16.0); Lymphocytes # (A) 3.2 k/uL (1.0-4.8); Lymphocytes % (A) 25 %; MCH 30.1 pg (25.0-35.0); MCV 91.1 fL (80.0-100.0); Monocytes # (A) 0.6 k/uL (0-1.0); Monocytes % (A) 5 %; Neutrophils # (A) 7.6 k/uL (1.3-7.7); Neutrophils % (A) 61 %; Platelet Count 388 k/uL (150-450); RBC 4.16 m/uL (3.80-5.40); RDW 13.9 % (11.5-15.5); WBC 12.4 k/uL (3.8-10.6)
[2019-06-01 22:53] LABS: ALT 21 U/L (9-52); AST 18 U/L (14-36); African American GFR (CKD) >90 (>60 ml/min/1.73 sqM); Albumin 4.1 g/dL (3.5-5.0); Alkaline Phosphatase 94 U/L (38-126); Anion Gap 9 mmol/L; Blood Urea Nitrogen 16 mg/dL (7-17); Calcium 9.1 mg/dL (8.4-10.2); Carbon Dioxide 28 mmol/L (22-30); Chloride 102 mmol/L (98-107); Glucose 80 mg/dL (74-99); Potassium 4.1 mmol/L (3.5-5.1); Sodium 139 mmol/L (137-145); Total Bilirubin 0.2 mg/dL (0.2-1.3); Total Protein 7.4 g/dL (6.3-8.2)
[2019-06-01 22:54] LABS: Appearance,Urine Cloudy (Clear); Bacteria,Urine Occasional /hpf; Bilirubin,Urine Negative (Negative); Blood,Urine Negative (Negative); Color,Urine Yellow; Glucose,Urine (UA) Negative (Negative); Ketones,Urine Negative (Negative); Leukocyte Esterase,Urine Negative (Negative); Mucus,Urine Few /hpf; Nitrite,Urine Negative (Negative); Protein,Urine 1+ (Negative); RBC,Urine 2 /hpf (0-5); Specific Gravity,Urine 1.036 (1.001-1.035); Squamous Epithelial Cell,Urine 26 /hpf (0-4); Urobilinogen,Urine <2.0 mg/dL (<2.0); WBC,Urine 1 /hpf (0-5)
--- NOTE | 2019-06-01 23:22 | CT ---
EXAM: CT Head Without Intravenous Contrast CLINICAL HISTORY: ITS.REASON CT Reason: Pain TECHNIQUE: Axial computed tomography images of the head/brain without intravenous contrast. CTDI is 49.1 mGy and DLP is 1137 mGy-cm. This CT exam was performed using one or more of the following dose reduction techniques: automated exposure control, adjustment of the mA and/or kV according to patient size, and/or use of iterative reconstruction technique. COMPARISON: None. FINDINGS: Brain: Unremarkable. No hemorrhage. No significant white matter disease. No edema. Ventricles: Unremarkable. No ventriculomegaly. Bones/joints: Unremarkable. No acute fracture. Soft tissues: Unremarkable. Sinuses: Unremarkable as visualized. No acute sinusitis. Mastoid air cells: Unremarkable as visualized. No mastoid effusion. IMPRESSION: No intracranial hemorrhage or other acute intracranial abnormality.
--- NOTE | 2019-06-01 23:55 | ED ---
Headache HPI - General Chief Complaint: Headache Stated Complaint: migraine x 5 days Time Seen by Provider: 06/01/19 21:47 Mode of arrival: ambulatory Limitations: no limitations - History of Present Illness Initial Comments: 29-year-old female patient presents to the emergency department today for evaluation of headache for the last 5 days. Patient states that 5 days ago she developed a headache to both temples and to the back of her head. States the pain is radiating into the neck. Patient states that the headache has been constant and worsening since then. States that with that she is also feeling fatigued, hot and cold flashes, and just not herself. She denies any fevers. Denies any head injury. She denies numbness, tingling, or weakness to the extremities. States she is having a pain to the right forearm, denies any injury to this location. Denies any history of migraine headache. Denies light or sound sensitivity. States she has been nauseous but no vomiting. Patient denies any recent rash, shortness breath, chest pain, abdominal pain, diarrhea, constipation, back pain, hematuria, dysuria, urinary urgency, urinary frequency, or any other complaints. Patient is concerned that she has diabetes, it does run her in family. - Related Data Home Medications Medication Instructions Recorded Confirmed Sertraline [Zoloft] 100 mg PO BID 06/01/19 06/01/19 Previous Rx's Medication Instructions Recorded Ibuprofen [Motrin] 600 mg PO Q6HR PRN #40 day 11/13/18 Albuterol Sulfate [Proair Hfa] 1 - 2 puff INHALATION Q6HR PRN #1 06/01/19 inhaler Ibuprofen [Motrin] 600 mg PO Q8HR PRN #30 tab 06/01/19 Allergies Allergy/AdvReac Type Severity Reaction Status Date / Time Penicillins Allergy Rash/Hives Verified 06/01/19 21:45 vancomycin Allergy Rash/Hives Verified 06/01/19 21:45 Review of Systems ROS Statement: Those systems with pertinent positive or pertinent negative responses have been documented in the HPI. ROS Other: All systems not noted in ROS Statement are negative. 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 Vital signs upon presentation are temperature 98.5F, pulse 82, respirations 18, blood pressure 115/74, pulse ox 99% on room air.) Eye exam: Present: normal appearance, PERRL, EOMI. Absent: scleral icterus, conjunctival injection, periorbital swelling ENT exam: Present: normal exam, normal oropharynx, mucous membranes moist Respiratory exam: Present: normal lung sounds bilaterally. Absent: respiratory distress, wheezes, rales, rhonchi, stridor Cardiovascular Exam: Present: regular rate, normal rhythm, normal heart sounds. Absent: systolic murmur, diastolic murmur, rubs, gallop, clicks GI/Abdominal exam: Present: soft, normal bowel sounds. Absent: distended, tenderness, guarding, rebound, rigid Neurological exam: Present: alert, oriented X3, CN II-XII intact, other (Strength in all 4 extremities is 5/5.) Psychiatric exam: Present: normal affect, normal mood Skin exam: Present: warm, dry, intact, normal color. Absent: rash Course Vital Signs 06/01/19 06/02/19 21:27 00:25 Temperature 98.5 F 97.8 F Pulse Rate 82 74 Respiratory 18 16 Rate Blood Pressure 115/74 95/62 O2 Sat by Pulse 99 98 Oximetry Medical Decision Making - Medical Decision Making 29-year-old female patient presents to the emergency department today for evaluation of headache. Physical examination is unremarkable. She is neurologically intact with no focal deficits. Labs reviewed and are unremarkable. CT brain was obtained and showed no acute abnormalities. I did discuss findings and results with the patient. She does report feeling better after receiving IV fluids and medication here in the emergency department. She is instructed to follow-up with her primary care physician for recheck in 1-2 da ys. Return parameters discussed in detail. She verbalizes understanding and agrees with this plan. - Lab Data Result diagrams: 06/01/19 22:34 06/01/19 22:34 Lab Results 06/01/19 06/01/19 06/01/19 Range/Units 21:55 22:34 22:34 WBC 12.4 H (3.8-10.6) k/uL RBC 4.16 (3.80-5.40) m/uL Hgb 12.5 (11.4-16.0) gm/dL Hct 37.9 (34.0-46.0) % MCV 91.1 (80.0-100.0) fL MCH 30.1 (25.0-35.0) pg MCHC 33.0 (31.0-37.0) g/dL RDW 13.9 (11.5-15.5) % Plt Count 388 (150-450) k/uL Neutrophils % 61 % Lymphocytes % 25 % Monocytes % 5 % Eosinophils % 8 % Basophils % 0 % Neutrophils # 7.6 (1.3-7.7) k/uL Lymphocytes # 3.2 (1.0-4.8) k/uL Monocytes # 0.6 (0-1.0) k/uL Eosinophils # 0.9 H (0-0.7) k/uL Basophils # 0.1 (0-0.2) k/uL Sodium 139 (137-145) mmol/L Potassium 4.1 (3.5-5.1) mmol/L Chloride 102 (98-107) mmol/L Carbon Dioxide 28 (22-30) mmol/L Anion Gap 9 mmol/L BUN 16 (7-17) mg/dL Creatinine 0.76 (0.52-1.04) mg/dL Est GFR (CKD-EPI)AfAm >90 (>60 ml/min/1.73 sqM) Est GFR (CKD-EPI)NonAf >90 (>60 ml/min/1.73 sqM) Glucose 80 (74-99) mg/dL POC Glucose (mg/dL) 102 H (75-99) mg/dL POC Glu Trash Man ID [employer] Calcium 9.1 (8.4-10.2) mg/dL Total Bilirubin 0.2 (0.2-1.3) mg/dL AST 18 (14-36) U/L ALT 21 (9-52) U/L Alkaline Phosphatase 94 (38-126) U/L Total Protein 7.4 (6.3-8.2) g/dL Albumin 4.1 (3.5-5.0) g/dL Urine Color Urine Appearance (Clear) Urine pH (5.0-8.0) Ur Specific [place] (1.001-1.035) Urine Protein (Negative) Urine Glucose (UA) (Negative) Urine Ketones (Negative) Urine Blood (Negative) Urine Nitrite (Negative) Urine Bilirubin (Negative) Urine Urobilinogen (<2.0) mg/dL Ur Leukocyte Esterase (Negative) Urine RBC (0-5) /hpf Urine WBC (0-5) /hpf Ur Squamous Epith Cells (0-4) /hpf Urine Bacteria (None) /hpf Urine Mucus (None) /hpf Urine HCG, Qual (Not Detectd) 06/01/19 06/01/19 Range/Units 22:34 22:34 WBC (3.8-10.6) k/uL RBC (3.80-5.40) m/uL Hgb (11.4-16.0) gm/dL Hct (34.0-46.0) % MCV (80.0-100.0) fL MCH (25.0-35.0) pg MCHC (31.0-37.0) g/dL RDW (11.5-15.5) % Plt Count (150-450) k/uL Neutrophils % % Lymphocytes % % Monocytes % % Eosinophils % % Basophils % % Neutrophils # (1.3-7.7) k/uL Lymphocytes # (1.0-4.8) k/uL Monocytes # (0-1.0) k/uL Eosinophils # (0-0.7) k/uL Basophils # (0-0.2) k/uL Sodium (137-145) mmol/L Potassium (3.5-5.1) mmol/L Chloride (98-107) mmol/L Carbon Dioxide (22-30) mmol/L Anion Gap mmol/L BUN (7-17) mg/dL Creatinine (0.52-1.04) mg/dL Est GFR (CKD-EPI)AfAm (>60 ml/min/1.73 sqM) Est GFR (CKD-EPI)NonAf (>60 ml/min/1.73 sqM) Glucose (74-99) mg/dL POC Glucose (mg/dL) (75-99) mg/dL POC Glu Trash Man ID Calcium (8.4-10.2) mg/dL Total Bilirubin (0.2-1.3) mg/dL AST (14-36) U/L ALT (9-52) U/L Alkaline Phosphatase (38-126) U/L Total Protein (6.3-8.2) g/dL Albumin (3.5-5.0) g/dL Urine Color Yellow Urine Appearance Cloudy H (Clear) Urine pH 6.0 (5.0-8.0) Ur Specific [place] 1.036 H (1.001-1.035) Urine Protein 1+ H (Negative) Urine Glucose (UA) Negative (Negative) Urine Ketones Negative (Negative) Urine Blood Negative (Negative) Urine Nitrite Negative (Negative) Urine Bilirubin Negative (Negative) Urine Urobilinogen <2.0 (<2.0) mg/dL Ur Leukocyte Esterase Negative (Negative) Urine RBC 2 (0-5) /hpf Urine WBC 1 (0-5) /hpf Ur Squamous Epith Cells 26 H (0-4) /hpf Urine Bacteria Occasional H (None) /hpf Urine Mucus Few H (None) /hpf Urine HCG, Qual Not Detected (Not Detectd) - Radiology Data Radiology results: report reviewed, image reviewed CT brain without contrast was obtained. Report was reviewed in its entirety. Impression by Dr. Mccarthy shows no intracranial hemorrhage or other acute intracranial abnormality. Disposition Clinical Impression: Migraine headache Disposition: HOME SELF-CARE Condition: Good Instructions (If sedation given, give patient instructions): Migraine Headache (ED) Additional Instructions: Follow-up with primary care physician for recheck as soon as possible. Return to the emergency department immediately for any new, worsening, or concerning symptoms. Prescriptions: Ibuprofen [Motrin] 600 mg PO Q8HR PRN #30 tab PRN Reason: Pain Albuterol Sulfate [Proair Hfa] 1 - 2 puff INHALATION Q6HR PRN #1 inhaler PRN Reason: Shortness Of Breath Is patient prescribed a controlled substance at d/c from ED?: No Referrals: Ger Lamar DO [STAFF PHYSICIAN] - 1-2 days Time of Disposition: 23:54
[2019-06-02 00:26] VITALS: BP 95/62; PULSE 74; RESP 16; TEMP 97.8
== END 2019-06-02 00:26 | disposition home or self-care (01) ==
LOC: EC 21:19
DX: G43.909 Migraine, unspecified, not intractable, without status migrainosus (principal); M79.631 Pain in right forearm; R53.83 Other fatigue; F32.9 Major depressive disorder, single episode, unspecified; F41.9 Anxiety disorder, unspecified; F43.10 Post-traumatic stress disorder, unspecified; F17.200 Nicotine dependence, unspecified, uncomplicated; Z88.0 Allergy status to penicillin; Z88.1 Allergy status to other antibiotic agents
CPT/HCPCS: 36415; 80053; 85025; 81001; 81025; 70450; 99284; 96374; 96375; 96361 ×2; J1200; J2765

== ENCOUNTER 2019-07-05 10:32 | Emergency (ER) | payer OTHER ==
[2019-07-05 10:37] VITALS: BP 108/71; PULSE 91; RESP 18; TEMP 98.1
--- NOTE | 2019-07-05 10:52 | ED ---
ENT HPI - General Chief complaint: ENT Stated complaint: Sore throat Time Seen by Provider: 07/05/19 10:39 Source: patient Mode of arrival: ambulatory Limitations: no limitations - History of Present Illness Initial comments: Patient is a 29-year-old female presenting to the emergency Department with complaints of a sore throat and congestion for 1 day. Patient states yesterday she woke up with a really bad sore throat as well as congestion and cough. Patient states she is occasionally bringing up yellow phlegm. Patient has history of mild asthma, uses albuterol inhaler as needed. Patient denies fever, chills, shortness of breath, nausea, vomiting, abdominal pain. Patient denies any other pertinent past medical history. Patient takes no other medications. Upon arrival to ER, vital signs are stable. - Related Data Home Medications Medication Instructions Recorded Confirmed Albuterol Sulfate [Proair Hfa] 1 - 2 puff INHALATION [id number] PRN 07/05/19 07/05/19 Previous Rx's Medication Instructions Recorded methylPREDNISolone [Medrol Dose 4 mg PO DIRECTED #1 pack 07/05/19 Pack] Allergies Allergy/AdvReac Type Severity Reaction Status Date / Time Penicillins Allergy Rash/Hives Verified 07/05/19 10:48 vancomycin Allergy Rash/Hives Verified 07/05/19 10:48 Review of Systems ROS Statement: Those systems with pertinent positive or pertinent negative responses have been documented in the HPI. ROS Other: All systems not noted in ROS Statement are negative. 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 HEAD: Atraumatic, normocephalic. EYES: Pupils equal round and reactive to light, extraocular movements intact, sclera anicteric, conjunctiva are normal. ENT: TMs normal, nares patent, oropharynx is erythematous without exudates. No enlargement of the tonsils. Moist mucous membranes. NECK: Normal range of motion, supple without lymphadenopathy or JVD. LUNGS: Breath sounds clear to auscultation bilaterally and equal. No wheezes rales or rhonchi. HEART: Regular rate and rhythm without murmurs, rubs or gallops. ABDOMEN: Soft, nontender, normoactive bowel sounds. No guarding, no rebound. No masses appreciated. : Deferred EXTREMITIES: Normal range of motion, no pitting or edema. No clubbing or cyanosis. NEUROLOGICAL: Cranial nerves II through XII grossly intact. Normal speech, normal gait. PSYCH: Normal mood, normal affect. SKIN: Warm, Dry, normal turgor, no rashes or lesions noted. Limitations: no limitations Course Vital Signs 07/05/19 10:35 Temperature 98.1 F Pulse Rate 91 Respiratory 18 Rate Blood Pressure 108/71 O2 Sat by Pulse 99 Oximetry Medical Decision Making - Medical Decision Making Patient is a 29-year-old female presenting with sore throat, cough, congestion 1 day. Patient's vital signs are stable, history of mild asthma. Patient exam is unremarkable except for mild erythema over oropharynx. Strep test is negative. This is likely a viral pharyngitis or upper respiratory. Patient will be given steroids and will continue with Mucinex and Motrin as needed for pain. Patient is in agreement with this plan of care. Patient is stable for discharge. Return parameters were discussed with the patient and she verbalized understanding. Case discussed with Dr. Joshua. - Lab Data Lab Results 07/05/19 Range/Units 11:00 Group A Strep Rapid Negative (Negative) Disposition Clinical Impression: Acute viral pharyngitis, Cough Disposition: HOME SELF-CARE Condition: Stable Instructions (If sedation given, give patient instructions): Pharyngitis (ED) Additional Instructions: Please return to the Emergency Department if symptoms worsen or any other concerns. Prescriptions: methylPREDNISolone [Medrol Dose Pack] 4 mg PO DIRECTED #1 pack Is patient prescribed a controlled substance at d/c from ED?: No Referrals: None,Stated [Primary Care Provider] - 1-2 days
== END 2019-07-05 12:12 | disposition home or self-care (01) ==
LOC: EC 10:32
DX: J02.8 Acute pharyngitis due to other specified organisms (principal); B97.89 Other viral agents as the cause of diseases classified elsewhere; J45.909 Unspecified asthma, uncomplicated; F17.200 Nicotine dependence, unspecified, uncomplicated; Z88.0 Allergy status to penicillin; Z88.1 Allergy status to other antibiotic agents
CPT/HCPCS: 87081; 87430; 99283

== ENCOUNTER 2019-07-20 22:49 | Emergency (ER) | payer OTHER ==
[2019-07-20 23:32] VITALS: BP 125/79; PULSE 95; RESP 16; TEMP 98.8
[2019-07-20] MEDS ORDERED: KETOROLAC 30 MG/ML 1 ML VIAL IM STA (23:38)
--- NOTE | 2019-07-20 23:43 | ED ---
General Adult HPI - General Chief complaint: Fall Stated complaint: Knee injury Time Seen by Provider: 07/20/19 23:14 Source: patient, RN notes reviewed Mode of arrival: ambulatory Limitations: no limitations - History of Present Illness Initial comments: 29-year-old female with a past medical history of asthma, bilateral knee surgery, previous heroin use presents to the emergency department for a chief complaint of left knee pain. Patient states she jumped off of the bottom step and injured her left knee. States that she felt a pop in the lateral aspect of the left knee. States it is painful to bend the left knee and to walk on her left lower extremity. Denies any other injuries. Denies hitting her head.Patient has no other complaints at this time including shortness of breath, chest pain, abdominal pain, nausea or vomiting, headache, or visual changes. - Related Data Home Medications Medication Instructions Recorded Confirmed No Known Home Medications 07/20/19 07/20/19 Allergies Allergy/AdvReac Type Severity Reaction Status Date / Time Penicillins Allergy Rash/Hives Verified 07/20/19 23:32 vancomycin Allergy Rash/Hives Verified 07/20/19 23:32 Review of Systems ROS Statement: Those systems with pertinent positive or pertinent negative responses have been documented in the HPI. ROS Other: All systems not noted in ROS Statement are negative. 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 Absent: scleral icterus, con junctival injection, periorbital swelling ENT exam: Present: normal exam Neck exam: Present: normal inspection, full ROM. Absent: tenderness, meningi smus, lymphadenopathy Respiratory exam: Present: normal lung sounds bilaterally. Absent: respiratory distress, wheezes, rales, rhonchi, stridor Cardiovascular Exam: Present: regular rate, normal rhythm, normal heart sounds. Absent: systolic murmur, diastolic murmur, rubs, gallop, clicks Extremities exam: Present: tenderness (Denies tenderness noted to the anterior aspect of the left knee. No posterior knee tenderness.), normal capillary refill (Capillary refill less than 2 seconds, DP pulse 2+ in the left lower extremity.), other (Sensation intact in the left lower extremity. Patient able to flex and extend ankle and move all toes.). Absent: full ROM (She has about 30 flexion of the left knee with extension to neutral position.), pedal edema, joint swelling, calf tenderness Course Vital Signs 07/20/19 23:30 Temperature 98.8 F Pulse Rate 95 Respiratory 16 Rate Blood Pressure 125/79 O2 Sat by Pulse 100 Oximetry Medical Decision Making - Medical Decision Making She presents after injury to the left knee. Limited range of motion however no edema erythema or ecchymosis. Neurovascular status is intact in the left lower extremity. X-ray of the left knee is negative. No fracture or dislocation. Image and report were both reviewed. Patient was given Toradol for pain, denies any chance of .. Patient was put in a knee immobilizer and given a prescription for crutches given concern for ligamentous injury.. Patient will follow-up with orthopedics, referral given. She will take Motrin and Tylenol for pain and return here if she has any worsening symptoms. Disposition Clinical Impression: Knee pain, left Disposition: HOME SELF-CARE Condition: Good Instructions (If sedation given, give patient instructions): Knee Pain (ED) Additional Instructions: Please take anti-inflammatories as directed for pain. Rest ice and elevate the left knee. Use knee immobilizer and crutches until you see orthopedics. Follow-up in one to 2 days with orthopedics. Otherwise return here to the emergency department if you develop any worsening symptoms. Is patient prescribed a controlled substance at d/c from ED?: No Referrals: Tiara Hwang MD [REFERRING] - 1-2 days Shaheed Kelly MD [STAFF PHYSICIAN] - 1-2 days Time of Disposition: 00:22
--- NOTE | 2019-07-21 00:18 | XR ---
EXAMINATION TYPE: XR knee complete LT DATE OF EXAM: 07/20/2019 COMPARISON: 12/19/2009 HISTORY: Knee pain TECHNIQUE: 3 views FINDINGS: I see no fracture nor dislocation. Joint spaces are normal. IMPRESSION: Negative left knee exam. No change.
== END 2019-07-21 00:38 | disposition home or self-care (01) ==
LOC: EC 22:49
DX: M25.562 Pain in left knee (principal); F17.200 Nicotine dependence, unspecified, uncomplicated; Z98.890 Other specified postprocedural states; Z88.0 Allergy status to penicillin; Z88.1 Allergy status to other antibiotic agents; W10.9XXA Fall (on) (from) unspecified stairs and steps, initial encounter; X50.9XXA Other and unspecified overexertion or strenuous movements or postures, initial encounter; Y92.009 Unspecified place in unspecified non-institutional (private) residence as the place of occurrence of the external cause; Y93.39 Activity, other involving climbing, rappelling and jumping off
CPT/HCPCS: 73562; 99283; 96372; L1830 ×2; J1885